=== PATIENT | female | born 1985 | race African-American/Black ===

== ENCOUNTER 2025-02-02 16:02 | Emergency (ER) | payer OTHER ==
[~2025-02-02] VITALS: Ht 170.2 cm; Wt 85.5 kg
[2025-02-02 16:12] VITALS: TEMP 97.7
[2025-02-02 16:50] LABS: PLATELET COUNT (AUTO) 293 K/uL (150-450); RED BLOOD CELL COUNT(AUTO) 4.83 MIL/uL (4.00-5.20); RED CELL DISTRIBUTION WIDTH 13.9 % (11.5-14.5); WHITE BLOOD COUNT (AUTO) 4.9 K/uL (4.5-11.0)
[2025-02-02 16:57] LABS: CALCIUM, TOTAL 9.1 mg/dL (8.8-10.5); CREATININE 1.20 mg/dL (0.60-1.30); GLOMERULAR FILTR. RATE CALC 50 mL/min (>60); GLUCOSE,RANDOM 102 mg/dL (70-110); SODIUM SERUM 138 mmol/L (136-145); UREA NITROGEN, BLOOD 11 mg/dL (7-18)
[2025-02-02 17:13] LABS: TROPONIN I-HIGH SENSITIVITY Less Than 4 ng/L (<51)
[2025-02-02 17:31] LABS: HCG,QUANTITATIVE < 1 mIU/mL (0-6)
[2025-02-02] MEDS: ASPIRIN 325 MG TABLET PO ONE (17:44)
[2025-02-02] MEDS: POTASSIUM CHLORIDE 20 MEQ ER TABLET PO ONE (17:44)
[2025-02-02] MEDS: NITROGLYCERIN 0.4 MG SUBLINGUAL TABLET #25 SL ONE (17:44)
[2025-02-02 18:38] LABS: TROPONIN I-HIGH SENSITIVITY Less Than 4 ng/L (<51)
[2025-02-02 21:03] VITALS: BP 126/78; PULSE 74; RESP 14; O2SAT 99
== END 2025-02-02 21:45 | disposition short-term general hospital (02) ==
LOC: EMS 16:02
DX: R07.89 Other chest pain (principal); I10 Essential (primary) hypertension; F12.90 Cannabis use, unspecified, uncomplicated
CPT/HCPCS: 71045; 80048; 83735; 83880; 84484; 84702; 85025; 93005; 99285; 36415-L1; 36415-TC